=== PATIENT | female | born 1995 | race African-American/Black ===

== ENCOUNTER 2017-10-21 00:16 | Emergency (ER) | payer OTHER ==
[~2017-10-21] VITALS: Ht 154.9 cm; Wt 71.1 kg
[~2017-10-21 00:16] MED LIST: CONCERTA36 MG PO; NAPROSYN500 MG PO; TRAZODONE HCL50 MG PO
[2017-10-21] MEDS ORDERED: GRISEOFULVIN500 MG PO (01:31)
[2017-10-21 01:47] VITALS: BP 119/71
== END 2017-10-21 01:47 | disposition home or self-care (01) ==
LOC: EME 00:16
DX: B35.0 Tinea barbae and tinea capitis (principal)
CPT/HCPCS: 99281; 99283